=== PATIENT | female | born 1995 | race Caucasian/White ===

== ENCOUNTER 2018-10-27 16:41 | Emergency (ER) | payer BC, SELFPAY ==
[2018-10-27 16:42] VITALS: BP 118/76; PULSE 100; RESP 16; TEMP 36.6; O2SAT 97; BMI 26.4
--- NOTE | 2018-10-27 16:49 | ED.RN ---
HIGHEST FEVER AT HOME 89 LAST NIGHT. 0900 TOOK IBUPROFEN.
--- NOTE | 2018-10-27 17:09 | ED.DCSUM_ITS ---
- ER Visit Summary Date of Service: 10/27/18 Chief Complaint: [Cough and sore throat] History of Present Illness: The patient is a 23 F [presents the emergency department with complaint of cough and sore throat and fever times 5 days. Patient states that she just generally feels weak and does not have much energy. Patient was seen at the urgent care 2 days ago and was started on amoxicillin. Patient states that she really does not feel much better since starting the amoxicillin. Patient continues to complain of a sore throat and cough is worse at night. Patient states that her sister had similar symptoms about a week and a half ago but she is better now. Patient was worried about possibly being dehydrated because she is just not been drinking as much fluid as normal and she is felt somewhat lightheaded at times.] Physical Examination: [HEENT-PERRLA, EOMI. Cranial nerves II through XII grossly intact. TMs clear. Mucous membranes moist. No adenopathy. Wound pharyngeal erythema diffusely. No tonsillar exudates. The midline without trismus. Cardiovascular-regular rate and rhythm without murmur or ectopy Lungs-clear to auscultation, chest wall stable without crepitus or subcu emphysema Abdomen-normoactive bowel sounds, soft, nontender, no rebound or rigidity, no peritoneal signs. Extremities-intact ?4, normal range of motion, normal pulses, atraumatic] Test Results: [None indicated] Emergency Department Course and Treatment: [I had a long discussion with patient and her mother and offered to give her some IV fluids although I did not feel clinically she appeared dehydrated. They would prefer to hold off on that at this point and they feel that they can hydrate orally. I suspect patient likely has a viral upper respiratory infection however she was advised to continue and finish out her antibiotic that she started 2 days ago. Will be lysed to follow-up with primary care physician within next 3-5 days.] Treatment Plan: [Patient given a prescription for Tessalon Perles] Disposition: [Discharged home in stable condition] Impression: [Upper respiratory infection] This note was generated with [employer] software. It may contain incorrect words, spelling, and punctuation that were not noted in review of the chart prior to signing ED Disposition - Plan for ED Patient: Chief Complaint: Fever Referrals: Shola Kenny MD [Primary Care Provider] -
--- NOTE | 2018-10-27 17:09 | ED.DEP ---
ED Disposition - Plan for ED Patient: Chief Complaint: Fever Instructions: ED Upper Resp Infec Abx Tx Prescriptions: Benzonatate [Tessalon Perle] 200 mg PO TID PRN PRN #20 cap PRN Reason: Cough Referrals: Shola Kenny MD [Primary Care Provider] - Laurent Roque MD [STAFF PHYSICIAN] - 3-5 Days
[2018-10-27 17:12] VITALS: BP 118/76; PULSE 76; RESP 16; O2SAT 98
--- OUTSIDE RECORDS SUMMARY | 2018-12-13 14:34 | XMS RPT_ITS ---
:1995 Author Organization [facility] Care Team Providers Name Role Phone CHIQUI UGALDE (OSTEOPATHIC NEUROLOGIST) Attending Unavailable CHIQUI UGALDE (OSTEOPATHIC NEUROLOGIST) Attending Unavailable CHIQUI UGALDE (OSTEOPATHIC NEUROLOGIST) Referring Unavailable ANGELES BLACKBURN (OSTEOPATHIC NEUROLOGIST) Attending Unavailable Abran Farah Attending Unavailable Primay Care Physicia, No Primary Care Unavailable Kelvin Diaz Attending Unavailable Shola Kenny Referring Unavailable PROBLEMS PROBLEMS DATE TYPE CONDITION / CODE ATTENDING STATUS SOURCE 09/19/2018 Unknown R35.0 - Frequency Kelvin Diaz Active [place] of micturition / Community R35.0(ICD-10) Hospital Repository 09/19/2018 Unknown N39.0 - Urinary Kelvin Diaz Active [place] tract infection, Community site not Hospital specified / Repository N39.0(ICD-10) 01/27/2018 Active Unknown / CHIQUI UGALDE Active [facility] UNK(Unknown) ([facility]) Main [place] Repository PROCEDURES PROCEDURES No Procedure Records FoundRESULTS RESULTS DISCHARGE INSTRUCTION Observed: 10/27/2018 Status: F Source: [place] 5:10 PM [facility] HOSPITAL REPOSITORY [facility] Medical Records Department [address] [place] [address] Discharge Instruction 10/27/18 1709 MR#: [id number] Acct: [id number] Name: NUBIA ARIZA Rep #: [id number] : 1995 23 From: Abran Farah DO PCP: Shola Kenny MD Status: PRE ER ED Disposition - Plan for ED Patient: Chief Complaint: Fever Instructions: ED Upper Resp Infec Abx Tx Prescriptions: Benzonatate [Tessalon Perle] 200 mg PO TID PRN PRN #20 cap PRN Reason: Cough Referrals: Shola Kenny MD [Primary Care Provider] - Laurent Roque MD [STAFF PHYSICIAN] - 3-5 Days What to do if you have Problems For any increased pain, shortness of breath, bleeding, nausea or vomiting, chest pain, or any unexpected problems, contact your Primary Care Provider. Call [facility] ([phone]) or report to the closest Emergency Room. Call 911 if necessary. 10/27/18 1710 <Electronically signed by Abran Farah DO> Date Abran Farah DO Cosigner Signature (If Indicated): Date CC: Shola Kenny MD EMERGENCY DEPARTMENT Observed: 10/27/2018 Status: F Source: [place] SUMMARY 5:09 PM [facility] REPOSITORY [facility] Medical Records Department [address] [place] [address] Emergency Department Summary 10/27/18 1706 MR#: [id number] Acct: [id number] Name: NUBIA ARIZA Rep #: [id number] : 1995 23 From: Abran Farah DO PCP: Shola Kenny MD Status: PRE ER - ER Visit Summary Date of Service: 10/27/18 Chief Complaint: [Cough and sore throat] History of Present Illness: The patient is a 23 F [presents the emergency department with complaint of cough and sore throat and fever times 5 days. Patient states that she just generally feels weak and does not have much energy. Patient was seen at the urgent care 2 days ago and was started on amoxicillin. Patient states that she really does not feel much better since starting the amoxicillin. Patient continues to complain of a sore throat and cough is worse at night. Patient states that her sister had similar symptoms about a week and a half ago but she is better now. Patient was worried about possibly being dehydrated because she is just not been drinking as much fluid as normal and she is felt somewhat lightheaded at times.] Physical Examination: [HEENT-PERRLA, EOMI. Cranial nerves II through XII grossly intact. TMs clear. Mucous membranes moist. No adenopathy. Wound pharyngeal erythema diffusely. No tonsillar exudates. The midline without trismus. Cardiovascular-regular rate and rhythm without murmur or ectopy Lungs-clear to auscultation, chest wall stable without crepitus or subcu emphysema Abdomen-normoactive bowel sounds, soft, nontender, no rebound or rigidity, no peritoneal signs. Extremities-intact 4, normal range of motion, normal pulses, atraumatic] Test Results: [None indicated] Emergency Department Course and Treatment: [I had a long discussion with patient and her mother and offered to give her some IV fluids although I did not feel clinically she appeared dehydrated. They would prefer to hold off on that at this point and they feel that they can hydrate orally. I suspect patient likely has a viral upper respiratory infection however she was advised to continue and finish out her antibiotic that she started 2 days ago. Will be lysed to follow-up with primary care physician within next 3-5 days.] Treatment Plan: [Patient given a prescription for Tessalon Perles] Disposition: [Discharged home in stable condition] Impression: [Upper respiratory infection] This note was generated with [employer] dictation software. It may contain incorrect words, spelling, and punctuation that were not noted in review of the chart prior to signing ED Disposition - Plan for ED Patient: Chief Complaint: Fever Referrals: Shola Kenny MD [Primary Care Provider] - What to do if you have Problems For any increased pain, shortness of breath, bleeding, nausea or vomiting, chest pain, or any unexpected problems, contact your Primary Care Provider. Call [facility] ([phone]) or report to the closest Emergency Room. Call 911 if necessary. 10/27/18 1709 <Electronically signed by Abran Farah > Date Abran Farah DO Cosigner Signature (If Indicated): Date CC: Shola Kenny MD GC/CHLAMYDIA AMPLIF Collected: 10/04/2018 Status: F Source: [place] 3:00 PM [facility] REPOSITORY TYPE CODE TESTS RESULT OUT OF REFERENCE UNITS RANGE LAB GCCTSR GC/Chlam Amp Cervix Source LAB GCAMPL GC Negative Amplification for Neisseria gonorrhoeae by amplification. LAB CLAMPL Chlamydia Negative Amplif for Chlamydia trachomatis by amplification. Performed By: #### GCCT #### [facility] [address] [place], [place] [address] CYTOLOGY Observed: 10/04/2018 Status: F Source: [place] 2:30 PM [facility] REPOSITORY ---Abnormal Pap Test - Epithelial Cell Abnormality--- Specimen originated from [facility] Specimen #: [id number] Submitting Physician: ANGELES BLACKBURN CNP SPECIMEN SUBMITTED A: CERVICAL, SCREENING, FLUID FINAL DIAGNOSIS A. CERVICAL, SCREENING, FLUID Satisfactory for interpretation. Epithelial cell abnormality. Low grade squamous intraepithelial lesion (LSIL). This specimen has been analyzed by the ThinPrep Imaging System, an automated imaging and review system, which assists the laboratory in evaluating cells on ThinPrep Pap tests. Following automated imaging, selected garcia from every slide are reviewed by a material requirements worker. Kaiser Griffiths M.D. (Electronic Signature) CLINICAL DATA ROUTINE EXAM, HPV Testing: Yes, Reflex HPV for ASCUS Date of Last Menstrual Period: 09/17/2018(Implant) STAINS A: CERVICAL, SCREENING, FLUID THIN PREP SUPERVISOR SAWMILL Date of Report: 10/14/2018 Date of Procedure: 10/04/2018 Date of Receipt: 10/07/2018 Submitted by: ANGELES BLACKBURN CNP Location: [facility] Diagnostic interpretation performed at [facility], [address] [place] [address]. The Pap Smear is a screening test for cervical cancer. False negative results occur with all screening tests, emphasizing the need for rescreening at recommended intervals, and clinical correlation. PROGRESS Observed: 10/04/2018 Status: COMPLETED Source: [place] 2:05 PM [facility] REPOSITORY HNO ID: [id number] Author: Anglees Blackburn Service: (none) Author Type: Nurse Practitioner Type: Progress Notes Filed: 10/04/2018 2:34 PM Note Text: Nubia Ariza is a 23 year old who presents for her annual gynecologic exam without complaints. Menses: cycles every 28 days and 7 days of flow. Contraception: oral contraceptives HPV vaccine: Yes Last Pap: never Last mammogram: never Sexually active: No x one month History of STDS: None Patient concerns for STD exposure: No. Time with current partner: none currently Pain with intercourse: No Postcoital bleeding: No Exercise: none Diet: tries to eat balanced Obstetric History T0 L0 SAB0 TAB0 Ectopic0 Multiple0 Live Births0 PAST MEDICAL HISTORY Diagnosis Date - PMH - PAST MEDICAL HISTORY OF hospitalized age 2 months for fever and viral infection PAST SURGICAL HISTORY Procedure Laterality Date - NONE FAMILY HISTORY Problem Relation Age of Onset - None Paternal Grandfather SOCIAL HISTORY Social History Substance Use Topics - Smoking status: Former Smoker - Smokeless tobacco: Never Used Comment: indoors - Alcohol use No REVIEW OF SYSTEMS Abdomen: No abdominal pain, nausea, vomiting, diarrhea, or constipation. No bloating, early satiety, indigestion, or increased flatulence. Bladder: No dysuria, gross hematuria, urinary frequency, urinary urgency, or incontinence. Breast: No breast lumps, nipple d/c, overlying skin changes, redness or skin retraction. Allergies and current medication updated:Yes EXAM: BP 112/60 Ht 5' 1 (1.55m) Wt 143 lb 3.2 oz (65.0kg) LMP 09/17/2018 BMI 27.07 kg/(m2). GENERAL: pleasant, female in no apparent distress HEENT: Normocephalic, atraumatic, mucus membranes moist and no lesions NECK: Supple, full range of motion, no adenopathy and thyroid normal DERMATOLOGY: Normal, without lesions, non-icteric and non-hirsute BREAST: soft, non-tender, symmetric, no dominant mass, normal nipple-areolar complex, no lymphadenopathy and no nipple discharge CHEST: Normal inspiratory effort ABDOMEN: soft, non-tender and no masses PELVIC: external genitalia normal, normal Bartholin's glands, urethra, Loami's glands, no vulvar lesions, no cervical lesions, good vaginal support, physiologic discharge present, normal appearing perineal body and perianal region, cervix friable BIMANUAL: uterus normal size, shape and consistency, no adnexal masses and non-tender RECTOVAGINAL: deferred. NEURO: alert and oriented x3,exam grossly non-focal EXTREMITIES: normal ASSESSMENT/PLAN: 1) Health maintenance: Pap done with reflex HPV. Nutrition, exercise and routine health maintenance exams reviewed. HPV vaccine: completed series 2) Contraception: oral contraceptives . Contraceptive options reviewed and information provided. Information given on NuvaRing. Pt will notify the office if she would like it sent to pharmacy. 3) STD screening: Accepted STD check for Gonorrhea and Chlamydia. 4) Follow up one year or sooner as needed Angeles Blackburn APRN.DCELAN CNOV Observed: 10/04/2018 Status: COMPLETED Source: [place] 2:00 PM [facility] REPOSITORY Office Visit (WOOB) NUBIA ARIZA ([id number]) 1995 F Date Time Provider Department 10/04/18 2:00 PM ANGELES BLACKBURN (DECLAN) WOOB During your visit today, we recorded the following information about you: Blood pressure Weight Height Last Period 112/60 65 kg 1.549 m 09/17/18 Angeles Blackburn APRN.DECLAN 10/04/2018 2:34 PM Signed Nubia Ariza is a 23 year old who presents for her annual gynecologic exam without complaints. Menses: cycles every 28 days and 7 days of flow. Contraception: oral contraceptives HPV vaccine: Yes Last Pap: never Last mammogram: never Sexually active: No x one month History of STDS: None Patient concerns for STD exposure: No. Time with current partner: none currently Pain with intercourse: No Postcoital bleeding: No Exercise: none Diet: tries to eat balanced Obstetric History T0 L0 SAB0 TAB0 Ectopic0 Multiple0 Live Births0 PAST MEDICAL HISTORY Diagnosis Date - PMH - PAST MEDICAL HISTORY OF hospitalized age 2 months for fever and viral infection PAST SURGICAL HISTORY Procedure Laterality Date - NONE FAMILY HISTORY Problem Relation Age of Onset - None Paternal Grandfather SOCIAL HISTORY Social History Substance Use Topics - Smoking status: Former Smoker - Smokeless tobacco: Never Used Comment: indoors - Alcohol use No REVIEW OF SYSTEMS Abdomen: No abdominal pain, nausea, vomiting, diarrhea, or constipation. No bloating, early satiety, indigestion, or increased flatulence. Bladder: No dysuria, gross hematuria, urinary frequency, urinary urgency, or incontinence. Breast: No breast lumps, nipple d/c, overlying skin changes, redness or skin retraction. Allergies and current medication updated:Yes EXAM: BP 112/60 Ht 5' 1 (1.55m) Wt 143 lb 3.2 oz (65.0kg) LMP 09/17/2018 BMI 27.07 kg/(m2). GENERAL: pleasant, female in no apparent distress HEENT: Normocephalic, atraumatic, mucus membranes moist and no lesions NECK: Supple, full range of motion, no adenopathy and thyroid normal DERMATOLOGY: Normal, without lesions, non-icteric and non-hirsute BREAST: soft, non-tender, symmetric, no dominant mass, normal nipple-areolar complex, no lymphadenopathy and no nipple discharge CHEST: Normal inspiratory effort ABDOMEN: soft, non-tender and no masses PELVIC: external genitalia normal, normal Bartholin's glands, urethra, Loami's glands, no vulvar lesions, no cervical lesions, good vaginal support, physiologic discharge present, normal appearing perineal body and perianal region, cervix friable BIMANUAL: uterus normal size, shape and consistency, no adnexal masses and non-tender RECTOVAGINAL: deferred. NEURO: alert and oriented x3,exam grossly non-focal EXTREMITIES: normal ASSESSMENT/PLAN: 1) Health maintenance: Pap done with reflex HPV. Nutrition, exercise and routine health maintenance exams reviewed. HPV vaccine: completed series 2) Contraception: oral contraceptives . Contraceptive options reviewed and information provided. Information given on NuvaRing. Pt will notify the office if she would like it sent to pharmacy. 3) STD screening: Accepted STD check for Gonorrhea and Chlamydia. 4) Follow up one year or sooner as needed Angeles Blackburn APRN.OSTEOPATHIC NEUROLOGIST Referring Provider: SELF [200] Allergies As of Date: 10/04/2018 (No Known Allergies) Date Reviewed: 10/04/2018 Reviewed by: Angeles Blackburn - Fully Assessed Reason for Visit: Yearly Exam [187] Primary Visit Diagnosis:Encounter for gynecological examination (general) (routine) without abnormal findings [Z01.419] Other Visit Diagnoses:Screening for cervical cancer [Z12.4] Encounter for screening for human papillomavirus (HPV) [Z11.51] Screen for STD (sexually transmitted disease) [Z11.3] Order(s):PAP FLUID CERVICAL SCREENING [5635201] Order #: [id number] GC/CHLAMYDIA DNA DET [SQGCCAMP] Order #: [id number] Prescriptions as of 10/04/2018 Sig: NORGESTIMATE 0.25 MG-ETHINYL * Take 1 tablet by mouth once d* Problem List As Of Date 10/04/2018 Noted Resolved Nervousness [R45.0] INVALID FOR* Medications Discontinued During This Encounter fluticasone (FLOVENT HFA) 44 mcg/act* 1 In* 6 11/20/2016 10/04/2018 Route: INHALATION Sig: Inhale 2 Puffs as instructed twice daily. VIA SPACER THEN RINSE AND GARGLE MOUTH WITH WATER. Patient not taking: Reported on 10/04/2018 Disc: Reason for discontinue is not on file. albuterol HFA (PROVENTIL HFA, VENTOL* 1 In* 0 03/13/2015 10/04/2018 Si puffs with spacer 15 to 20 min pre-exercise prn Patient not taking: Reported on 10/04/2018 Disc: Reason for discontinue is not on file. Disposition: Return in 1 year (on 10/04/2019) for Annual Exam. Follow-up and Disposition History Recorded Encounter Status:Closed by ANGELES BLACKBURN on 10/04/18 URGENT CARE VISIT Observed: 08/10/2018 Status: F Source: [place] REPORT 2:40 PM [facility] REPOSITORY [facility] [address] [place] [address] [address] [place] [address] OFFICE VISIT Date of Service: 08/10/18 MR#: [id number] Acct: [id number] Name: NUBIA ARIZA Rep #: [id number] : 1995 Provider: Kelvin BRICE Age/Sex: 23/F Location: [facility] Status: Signed Intake Vital Signs08/10/18 Height 5 ft 1 in Intake Visit Reasons: Urinary tract infection Chief Complaint: Dysuria and urinary frequency Allergies No Known Allergies Allergy (Verified 08/10/18 14:27) Medications Unobtainable 08/10/18 [History Confirmed 08/10/18] PFSH Social History Smoking Status: Never smoker alcohol intake: current alcohol intake frequency: a few times a month HPI HPI Chief Complaint: Dysuria and urinary frequency Details: NUBIA ARIZA, is a 23 F who presents to the office today for initial evaluation approximate 1 week history of progressive worsening dysuria and urinary frequency. Occasional chills and mild suprapubic pressure to palpation - though no complaints of fever, sweats, rash, chest pain/shortness of breath, cough, vaginal discharge, or bowel function changes in character. ROS Const Constitutional: No other (ROS negative x10 other than as noted above) Exam Const General: cooperative, healthy appearing, no acute distress, comfortable Nutritional Appearance: average body habitus Orientation: alert, awake, oriented x3 HENMT Head: normal to inspection, atraumatic, normocephalic Neck Neck: normal visual inspection, full ROM, no lymphadenopathy, no meningeal signs, supple Neck mass: No Thyroid: thyroid normal Lymphatic: no lymphadenopathy noted Chest Chest palpation AND inspection: normal inspection of the chest Resp Effort AND Inspection: normal respiratory effort, able to speak in complete sentences, symmetric chest movement, no cough Auscultation: Bilateral: Clear to Auscultation Cardio Palpation: normal PMI Rate: regular rate Rhythm: regular rhythm Heart Sounds: S1 normal, S2 normal, no gallops, no murmurs, no rubs Pulses: radial pulses present GI Inspection: normal to inspection Palpation: soft, no hepatosplenomegaly, not firm, no guarding, No ascites, no masses, tender suprapubicly; Negative for not at McBurney's point, obturator sign negative, Otoole's sign negative, Rovsing's sign negative, with no rebound tenderness, psoas sign negative, not periumbilically, not in the epigastrum, not in the LLQ, not in the RLQ, not in the LUQ or not in the RUQ General: No CVA tenderness, other (See urinalysis dip and urine hCG results from today) Skin General: no rashes or lesions noted Neuro General: alert, awake, oriented x3, gait normal Cognition: normal cognition Speech: speech normal Gait: normal gait Motor: muscle tone normal throughout Sensory Exam: no sensory deficits noted Extrem General: normal to inspection Psych Appearance: grossly normal Mental Status: mental status grossly normal Mood: congruent mood Affect: normal affect Speech and Movement: speech and movement normal Attitude: cooperative Thought Process: normal Thought Content: normal Judgment: judgment good Results [facility] Office , Urine Negative Last Edit by Stephanie Segura on 08/10/18 14:32 [facility] Office Urine Color YELLOW Last Edit by Stephanie Segura on 08/10/18 14:33 Office Urine Clarity Clear Last Edit by Stephanie Segura on 08/10/18 14:33 Assessment AND Plan 1. Urinary tract infection N39.0 Plan Macrobid as prescribed today, called in to [facility] [place] of blister. Appropriate hygiene as reinforced today. Clear fluids, rest, avoid alcohol and caffeine, Advil/Tylenol as needed for symptomatic relief. Follow-up with PCP in 3-5 days should symptoms not improved, sooner should symptoms worsen or any other concerns develop. Patient states acknowledging understanding all the above. This note was generated with Dragon dictation software. It may contain incorrect words, spelling, and punctuation that were not noted in checking the note before signing. Plan Detail Other Orders Orders: Coding Level of Care Code Off vis,new,level 3 Diagnoses Urinary tract infection N39.0 08/10/18 1440 <Electronically signed by Kelvin BRICE> Date Kelvin BRICE Cosigner Signature: Date (if applicable) CC: PROGRESS Observed: 02/08/2018 Status: COMPLETED Source: [place] 4:04 PM [facility] REPOSITORY HNO ID: [id number] Author: Chiqui Pitt) CHANI Ugalde Service: (none) Author Type: Nurse Practitioner Type: Progress Notes Filed: 02/08/2018 4:30 PM Note Text: Nubia Ariza is a 22 year old female who presents for Nexplanon removal for acne. UNIVERSAL PROTOCOL / SAFETY CHECKLIST Procedure to be performed: nexplanon removal Sign in Communication: Completed Time Out: Team Confirms the Correct Patient, Correct Procedure, Correct Site and Site Marking, Correct Position (if applicable), Prep and Dry Time (if applicable). Time: 1614 Affirmation of Time Out: YES Sign Out Discussion: Completed Chiqui Ugalde CNP TECHNIQUE: Patient placed in supine position with left arm bent at the elbow and placed over the head. Skin cleansed with betadine. 1mL of 1% lidocaine with epi injected subQ along insertion site. Scalpel used to made a 5mm stab incision superficially at distal end of Nexplanon. Device removed under sterile technique with a small hemostat. Sterile pressure dressing applied. AANDP: 22 year old female here for implanon removal Nexplanon removed intact without difficulty. The patient was instructed to remove the dressing after 24 hours. Contraceptive plans Continuous OCP Chiqui Ugalde APRN.DECLAN STEVEOV Observed: 02/08/2018 Status: COMPLETED Source: [place] 4:00 PM [facility] REPOSITORY Office Visit (WOOB) NUBIA ARIZA ([id number]) 1995 F Date Time Provider Department 02/08/18 4:00 PM CHIQUI UGALDE (DECLAN) WOOB During your visit today, we recorded the following information about you: Blood pressure Weight 104/62 63.5 kg Chiqui Ugalde APRN.CNP, APRN.CNP 02/08/2018 4:30 PM Signed Nubia Hoskins To is a 22 year old female who presents for Nexplanon removal for acne. UNIVERSAL PROTOCOL / SAFETY CHECKLIST Procedure to be performed: nexplanon removal Sign in Communication: Completed Time Out: Team Confirms the Correct Patient, Correct Procedure, Correct Site and Site Marking, Correct Position (if applicable), Prep and Dry Time (if applicable). Time: 1614 Affirmation of Time Out: YES Sign Out Discussion: Completed Chiqui Ugalde CNP TECHNIQUE: Patient placed in supine position with left arm bent at the elbow and placed over the head. Skin cleansed with betadine. 1mL of 1% lidocaine with epi injected subQ along insertion site. Scalpel used to made a 5mm stab incision superficially at distal end of Nexplanon. Device removed under sterile technique with a small hemostat. Sterile pressure dressing applied. AANDamp;P: 22 year old female here for implanon removal Nexplanon removed intact without difficulty. The patient was instructed to remove the dressing after 24 hours. Contraceptive plans Continuous OCP CHANI Camarena APRN.CNP, APRN.CNP 02/08/2018 4:27 PM Signed Oral Contraceptives: The Pill Beginning the Pill Pills come in either a 21 day pack or a 28 day pack. With the 21 day pack you will take one pill for 21 days then no pill for 7 days, during which time you will have what is known as withdrawal bleeding. The 28 day pack allows you to take a pill every day of the cycle with no interruptions. The first 21 pills are the pills with the active ingredients and the last 7 are the nonmedical pills (placebo) or they may contain iron. There will be bleeding during the week you are taking the nonmedical pills. The advantage to the 28 day pack is that you don?t have to keep track of when you stopped the pill. ? Unless otherwise instructed, you should start your pills the Wednesday following your first day of bleeding with your next period (if your period starts on a Wednesday, you should start pills the same day) ? Read your information packet that comes with the pills. Pill Benefits The pill is the most popular method of reversible control being used today. Millions of women rely on oral contraceptives as their control method. It is important to have an examination by your physician to determine if the pill is safe for you. There are several advantages associated with the pill: it is 97-98% effective; may improve acne; periods are more regular and less painful; there is less iron deficiency anemia in pill users. termite treater use is associated with a decreased incidence of ovarian and uterine cancer. There is also no evidence that the pill increases the incidence of any cancer. How Oral Contraceptives Work Oral contraceptives come in two varieties. One is the combination pill which contains both estrogen and progesterone. Combination pills are considered 98-99% effective in preventing . This pill comes in either monophasic, which delivers the same amount of estrogen and progesterone throughout the cycle; and triphasic, which try tries to mimic the normal hormone cycle by changing the levels of the hormones in the pills during the month. There is no real advantage to taking the one over the other. The other type of pill only contains progesterone. It is best used for women who can?t take estrogen. This type of pill is slightly less effective than the combination pill in preventing . Oral contraceptives prevent ovulation (release of an egg from the ovary) by suppressing the pituitary gland?s action. The pill does NOT prevent sexually transmitted disease. Obtaining a Prescription ? It is important to see your doctor before starting oral contraceptives so that you can have a full medical history taken and a physical examination given. Certain medical conditions may make the pill inappropriate for you, therefore it is very important to be honest and as complete as possible with the information you share with your doctor. The types of predisposing factors which would make the pill a poor choice of control would include: ? History of blood clots ? Stroke ? Serious liver disease or impaired liver function ? Unexplained vaginal bleeding or ? Cancer of the reproductive system ? Active gall bladder disease ? Hypertension Possible Side Effects It can take up to three months for your body to become adjusted to the pill. The more common side effects experienced at this time are: breakthrough spotting or bleeding, which is bleeding at any other time other than when you should be having a period; nausea or vomiting; breast tenderness; and mild fluid retention. There is no skilled nursing weight gain with the use of the pill. Breakthrough bleeding is the most common complaint of new pill users. There is no way to predict who will have it and there is no way of preventing it. Breakthrough bleeding usually subsides on its own with no further treatment after the first three months of taking the pill. If these symptoms continue to occur after the first three months you should check with your physician to see if there is any physical cause and possibly change to another control pill. Problems: 1. Missed 1 pill: Take 2 pills the next day. 2. Missed 2 pills: Take 2 pills the next day and 2 pills the following day. Also use another form of control (condoms) along with the pill for the rest of the month. 3. Missed 3 or more pills: You have two choices. You can take two pills each day until you are on schedule, plus use an additional form of control along with the pill for the rest of the month. Or you can stop the pill and start a completely new pack of pills the next Wednesday. You must use another form of control with the pill for at least the first two weeks of the new pack. 4. You?re ill and you have been vomiting or have diarrhea: You must use another form of control with the pill since the pill may not be fully absorbed during your illness. Continue to use the added control until the end of the cycle. 5. Desire to become : Stop using the pill for one month before trying to become . 6. Taking other medications: The control pill is less effective when you take the antibiotic Rifampin, epilepsy (seizure) drugs such as phenytoin, carbamazepine, phenobarbital, topiramate and some medications for HIV. Let your doctor know if you start taking any of these medications while on the pill. Symptoms to Notify Your Doctor with Immediately: 1. Pain in your chest or legs 2. Continuous blurred vision 3. Severe headaches 4. Slurred speech 5. Tingling or weakness on one side of your body 6. Shortness of breath 7. Swelling of one leg Refills of Control Pills You need to see a doctor every year for a refill of your prescription. This is necessary in order that your health can be monitored closely while you are taking control pills. If your prescription should before your next scheduled appointment you can usually get a one month extension from your doctors office if you call during regular business hours about one week before you need to start the new package of pills. This allows the physician to refer to your chart for necessary health information. Referring Provider: CHIQUI UGALDE (OSTEOPATHIC NEUROLOGIST) [[id number]] Allergies As of Date: 02/08/2018 (No Known Allergies) Date Reviewed: 02/08/2018 Reviewed by: Chiqui Pitt) FORREST Ugalde.DECLAN - Fully Assessed Reason for Visit: nexplanon removal [Other] Primary Visit Diagnosis:Nexplanon removal [Z30.46] Other Visit Diagnosis:Oral contraception initial prescription [Z30.011] Order(s):norgestimate 0.25 mg-ethinyl estradiol 35 mcg (SPRINTEC) 0.25-35 mg-mcg per tabletTake 1 tablet by mouth once daily. Take active pills only.Disp: 4 PackageRfl: 5 Prescriptions as of 02/08/2018 Sig: FLUTICASONE 44 MCG/ACTUATION * Inhale 2 Puffs as instructed * ALBUTEROL SULFATE HFA 90 MCG/* 2 puffs with spacer 15 to 20 * NORGESTIMATE 0.25 MG-ETHINYL * Take 1 tablet by mouth once d* Problem List As Of Date 02/08/2018 Noted Resolved Nervousness [R45.0] INVALID FOR* Other instructions from your clinician: Oral Contraceptives: The Pill Beginning the Pill Pills come in either a 21 day pack or a 28 day pack. With the 21 day pack you will take one pill for 21 days then no pill for 7 days, during which time you will have what is known as withdrawal bleeding. The 28 day pack allows you to take a pill every day of the cycle with no interruptions. The first 21 pills are the pills with the active ingredients and the last 7 are the nonmedical pills (placebo) or they may contain iron. There will be bleeding during the week you are taking the nonmedical pills. The advantage to the 28 day pack is that you don?t have to keep track of when you stopped the pill. ? Unless otherwise instructed, you should start your pills the Wednesday following your first day of bleeding with your next period (if your period starts on a Wednesday, you should start pills the same day) ? Read your information packet that comes with the pills. Pill Benefits The pill is the most popular method of reversible control being used today. Millions of women rely on oral contraceptives as their control method. It is important to have an examination by your physician to determine if the pill is safe for you. There are several advantages associated with the pill: it is 97-98% effective; may improve acne; periods are more regular and less painful; there is less iron deficiency anemia in pill users. residential use is associated with a decreased incidence of ovarian and uterine cancer. There is also no evidence that the pill increases the incidence of any cancer. How Oral Contraceptives Work Oral contraceptives come in two varieties. One is the combination pill which contains both estrogen and progesterone. Combination pills are considered 98-99% effective in preventing . This pill comes in either monophasic, which delivers the same amount of estrogen and progesterone throughout the cycle; and triphasic, which try tries to mimic the normal hormone cycle by changing the levels of the hormones in the pills during the month. There is no real advantage to taking the one over the other. The other type of pill only contains progesterone. It is best used for women who can?t take estrogen. This type of pill is slightly less effective than the combination pill in preventing . Oral contraceptives prevent ovulation (release of an egg from the ovary) by suppressing the pituitary gland?s action. The pill does NOT prevent sexually transmitted disease. Obtaining a Prescription ? It is important to see your doctor before starting oral contraceptives so that you can have a full medical history taken and a physical examination given. Certain medical conditions may make the pill inappropriate for you, therefore it is very important to be honest and as complete as possible with the information you share with your doctor. The types of predisposing factors which would make the pill a poor choice of control would include: ? History of blood clots ? Stroke ? Serious liver disease or impaired liver function ? Unexplained vaginal bleeding or ? Cancer of the reproductive system ? Active gall bladder disease ? Hypertension Possible Side Effects It can take up to three months for your body to become adjusted to the pill. The more common side effects experienced at this time are: breakthrough spotting or bleeding, which is bleeding at any other time other than when you should be having a period; nausea or vomiting; breast tenderness; and mild fluid retention. There is no skilled nursing weight gain with the use of the pill. Breakthrough bleeding is the most common complaint of new pill users. There is no way to predict who will have it and there is no way of preventing it. Breakthrough bleeding usually subsides on its own with no further treatment after the first three months of taking the pill. If these symptoms continue to occur after the first three months you should check with your physician to see if there is any physical cause and possibly change to another control pill. Problems: 1. Missed 1 pill: Take 2 pills the next day. 2. Missed 2 pills: Take 2 pills the next day and 2 pills the following day. Also use another form of control (condoms) along with the pill for the rest of the month. 3. Missed 3 or more pills: You have two choices. You can take two pills each day until you are on schedule, plus use an additional form of control along with the pill for the rest of the month. Or you can stop the pill and start a completely new pack of pills the next Wednesday. You must use another form of control with the pill for at least the first two weeks of the new pack. 4. You?re ill and you have been vomiting or have diarrhea: You must use another form of control with the pill since the pill may not be fully absorbed during your illness. Continue to use the added control until the end of the cycle. 5. Desire to become : Stop using the pill for one month before trying to become . 6. Taking other medications: The control pill is less effective when you take the antibiotic Rifampin, epilepsy (seizure) drugs such as phenytoin, carbamazepine, phenobarbital, topiramate and some medications for HIV. Let your doctor know if you start taking any of these medications while on the pill. Symptoms to Notify Your Doctor with Immediately: 1. Pain in your chest or legs 2. Continuous blurred vision 3. Severe headaches 4. Slurred speech 5. Tingling or weakness on one side of your body 6. Shortness of breath 7. Swelling of one leg Refills of Control Pills You need to see a doctor every year for a refill of your prescription. This is necessary in order that your health can be monitored closely while you are taking control pills. If your prescription should before your next scheduled appointment you can usually get a one month extension from your doctors office if you call during regular business hours about one week before you need to start the new package of pills. This allows the physician to refer to your chart for necessary health information. Prescriptions ordered this encounter Disp Refills Start End NORGESTIMATE 0.25 MG-ETHINYL ESTRADI* 4 Pa* 5 02/08/2018 Route: ORAL Sig: Take 1 tablet by mouth once daily. Take active pills only. Medications Discontinued During This Encounter etonogestrel (NEXPLANON) subdermal i* 02/08/2018 Class: Historical Med Route: SUBDERMAL Si mg by SUBDERMAL route. Disc: Reason for discontinue is not on file. Encounter Status:Closed by CHIQUI UGALDE on 02/08/18 CNOV Observed: 01/27/2018 Status: COMPLETED Source: [place] 4:00 PM [facility] REPOSITORY Office Visit (WOOB) NUBIA ARIZA ([id number]) 1995 F Date Time Provider Department 01/27/18 4:00 PM CHIQUI UGALDE (DECLAN) [facility] During your visit today, we recorded the following information about you: Blood pressure Weight 110/64 64 kg CHIQUI UGALDE CNP 01/27/2018 4:18 PM Signed Nubia Hoskins To is a 22 year old female who presents for problem visit Wants nexplanon removed. HPI: pt would like to have nexplanon due to increase in acne. Not having any menses or other complications. PAST MEDICAL HISTORY Diagnosis Date - PMH - PAST MEDICAL HISTORY OF hospitalized age 2 months for fever and viral infection PAST SURGICAL HISTORY Procedure Laterality Date - NONE FAMILY HISTORY Problem Relation Age of Onset - None Paternal Grandfather Social History Marital status: Single Spouse name: Years of education: 12 Number of children: 0 Social History Main Topics Smoking status: Former Smoker Packs/day: 0.00 Years: 0.00 Smokeless status: Never Used Comment: indoors Alcohol use: No Drug use: No Sexual activity: Yes Partners with: Male control/protection: Condom, Inserts Current Outpatient Prescriptions: etonogestrel (NEXPLANON) subdermal implant 68 mg 68 mg by SUBDERMAL route. fluticasone (FLOVENT HFA) 44 mcg/actuation inhaler Inhale 2 Puffs as instructed twice daily. VIA SPACER THEN RINSE AND GARGLE MOUTH WITH WATER. Etonogestrel-Ethinyl Estradiol (NUVARING) 0.12-0.015 mg/24 hr vaginal ring Insert vaginally and leave in place for 3 consecutive weeks, then remove for 1 week. Indications: CONTRACEPTION albuterol HFA (PROVENTIL HFA, VENTOLIN HFA) 90 mcg/actuation inhaler 2 puffs with spacer 15 to 20 min pre-exercise prn No current facility-administered medications for this visit. Allergies As of Date: 01/27/2018 (No Known Allergies) Fully Assessed 01/27/2018 REVIEW OF SYSTEMS Abdomen: No bloating, early satiety, indigestion, or increased flatulence. No abdominal pain, nausea, vomiting, diarrhea, or constipation. Bladder: No dysuria, gross hematuria, urinary frequency, urinary urgency, or incontinence. Expanded ROS: N/A Allergies and current medication updated:Yes EXAM: There were no vitals taken for this visit. GENERAL: pleasant, female in no apparent distress CHEST: Normal inspiratory effort NEURO: alert and oriented x3,exam grossly non-focal ASSESSMENT AND PLAN: No diagnosis found. Will get approval for nexplanon removal Pt would like to do OCPs continuous when nexplanon is removed CHIQUI UGALDE CNP Referring Provider: SELF [[id number]] Allergies As of Date: 01/27/2018 (No Known Allergies) Date Reviewed: 01/27/2018 Reviewed by: Chiqui Pitt) Aftab - Fully Assessed Reason for Visit: Contraception [26] Primary Visit Diagnosis:Encounter for surveillance of implantable subdermal contraceptive [Z30.46] Prescriptions as of 01/27/2018 Sig: ETONOGESTREL 68 MG SUBDERMAL * 68 mg by SUBDERMAL route. FLUTICASONE 44 MCG/ACTUATION * Inhale 2 Puffs as instructed * ALBUTEROL SULFATE HFA 90 MCG/* 2 puffs with spacer 15 to 20 * Problem List As Of Date 01/27/2018 Noted Resolved Nervousness [R45.0] INVALID FOR* Medications Discontinued During This Encounter Etonogestrel-Ethinyl Estradiol (NUVA* 3 Ea* 3 11/03/2016 01/27/2018 Sig: Insert vaginally and leave in place for 3 consecutive weeks, then remove for 1 week. Indications: CONTRACEPTION Disc: Reason for discontinue is not on file. Encounter Status:Closed by CHIQUI UGALDE on 01/27/18 PROGRESS Observed: 01/27/2018 Status: COMPLETED Source: [place] 3:56 PM [facility] REPOSITORY O ID: [id number] Author: Chiqui (Declan) Aftab Service: (none) Author Type: Nurse Practitioner Type: Progress Notes Filed: 01/27/2018 4:18 PM Note Text: Nubia Ariza is a 22 year old female who presents for problem visit Wants nexplanon removed. HPI: pt would like to have nexplanon due to increase in acne. Not having any menses or other complications. PAST MEDICAL HISTORY Diagnosis Date - PMH - PAST MEDICAL HISTORY OF hospitalized age 2 months for fever and viral infection PAST SURGICAL HISTORY Procedure Laterality Date - NONE FAMILY HISTORY Problem Relation Age of Onset - None Paternal Grandfather Social History Marital status: Single Spouse name: Years of education: 12 Number of children: 0 Social History Main Topics Smoking status: Former Smoker Packs/day: 0.00 Years: 0.00 Smokeless status: Never Used Comment: indoors Alcohol use: No Drug use: No Sexual activity: Yes Partners with: Male control/protection: Condom, Inserts Current Outpatient Prescriptions: etonogestrel (NEXPLANON) subdermal implant 68 mg 68 mg by SUBDERMAL route. fluticasone (FLOVENT HFA) 44 mcg/actuation inhaler Inhale 2 Puffs as instructed twice daily. VIA SPACER THEN RINSE AND GARGLE MOUTH WITH WATER. Etonogestrel-Ethinyl Estradiol (NUVARING) 0.12-0.015 mg/24 hr vaginal ring Insert vaginally and leave in place for 3 consecutive weeks, then remove for 1 week. Indications: CONTRACEPTION albuterol HFA (PROVENTIL HFA, VENTOLIN HFA) 90 mcg/actuation inhaler 2 puffs with spacer 15 to 20 min pre-exercise prn No current facility-administered medications for this visit. Allergies As of Date: 01/27/2018 (No Known Allergies) Fully Assessed 01/27/2018 REVIEW OF SYSTEMS Abdomen: No bloating, early satiety, indigestion, or increased flatulence. No abdominal pain, nausea, vomiting, diarrhea, or constipation. Bladder: No dysuria, gross hematuria, urinary frequency, urinary urgency, or incontinence. Expanded ROS: N/A Allergies and current medication updated:Yes EXAM: There were no vitals taken for this visit. GENERAL: pleasant, female in no apparent distress CHEST: Normal inspiratory effort NEURO: alert and oriented x3,exam grossly non-focal ASSESSMENT AND PLAN: No diagnosis found. Will get approval for nexplanon removal Pt would like to do OCPs continuous when nexplanon is removed CHIQUI UGALDE CNP ALLERGIES ALLERGIES DATE TYPE / CODE NAME / CODE REACTION SEVERITY SOURCE 08/10/2018 Drug No Known Unknown [facility] Allergy/416 Allergies/[id number] Hospital 301809(SNOM 0388(RXNORM) Repository ED CT) Drug NO KNOWN [facility] Class/00753 ALLERGIES [place] 1003(SNOMED Repository CT) ENCOUNTERS ENCOUNTERS ADMIT/DISCHARGE ACCOUNT ADMITTING ENCOUNTER LOCATION SOURCE NUMBER CLASS 10/27/2018/10/27/20 [id number] Emergency [address] ing:ED Repository 10/04/2018/10/05/20 [id number] Ambulatory [address] Repository 08/10/2018/08/10/20 [id number] Ambulatory BMSBuilding:B [address] Repository 02/08/2018/02/11/20 [id number] Ambulatory [address] Repository 01/27/2018/02/01/20 [id number] Ambulatory [address] Repository PAYERS PAYERS ENCOUNTER GUARANTOR PAYER SUBSCRIBER SOURCE 10/27/2018 NUBIA FLANAGAN BALLDOB: Marifer [id number] YVAN [facility] [id number] Number: [facility] [id number]: 330 [id number] Repository [phone] () Date:[id number] [address], [place] [address]ST: 10/27/2018 Secondary NOT GIVENUNK [place] Insurance:SELF PAY [facility] Hospital Number: Effective Repository Date:2018-10-27 08/10/2018 NUBIA COKER Primary PANCHITO BALLDOB: Marifer [id number] YVAN Insurance:[employer] [id number] [place] Number: [facility] [address]Ahs: (548) [id number] Repository [phone] () Date:[id number] [address], [place] [address]BE: 08/10/2018 Secondary CALEB L [place] Insurance:ANTHEM FORDENWALTDOB: [facility] SECONDARYPoly [id number] Hospital Number: Repository [id number] Date:[id number] [address], [place] [address]KE: 08/10/2018 Tertiary NOT GIVENUNK [place] Insurance:SELF PAY [facility] Number: Effective Repository Date:2018-08-10
== END 2018-10-27 17:31 | disposition home or self-care (01) ==
PROVIDERS: Emergency Provider Emergency Medicine
DX: J06.9 Acute upper respiratory infection, unspecified (principal)
CPT/HCPCS: 99282